=== PATIENT | female | born 1950 | race Two or more races ===

== ENCOUNTER 2021-07-23 10:47 | Outpatient (CLI) | payer OTHER | END 2021-07-23 10:54 | disposition home or self-care (01) | LOC: RAD 10:47 | DX: M54.2 Cervicalgia (principal); M54.6 Pain in thoracic spine; M54.50 Low back pain, unspecified ==

== ENCOUNTER 2023-11-12 17:24 | Outpatient (CLI) | payer OTHER | END 2023-11-12 17:27 | disposition home or self-care (01) | LOC: SONOGRAMA 17:24 | PROVIDERS: ATTEND Pathology Anatomic Pathology & Clinical Pathology | DX: D34 Benign neoplasm of thyroid gland (principal); E06.3 Autoimmune thyroiditis; E04.2 Nontoxic multinodular goiter ==